=== PATIENT | male | born 1990 | race Caucasian/White ===

== ENCOUNTER 2018-09-04 12:14 | Emergency (ER) | payer OTHER ==
[2018-09-04 12:23] VITALS: BP 122/67; PULSE 79; TEMP 97.8; BMI 22.1
--- NOTE | 2018-09-04 12:52 | PDOC ---
History of Present Illness - General Chief Complaint: Wound Stated Complaint: INSECT BITE Time Seen by Provider: 09/04/18 12:33 History Source: Patient Exam Limitations: No Limitations Past History - Past Medical History Allergies/Adverse Reactions: Allergies Allergy/AdvReac Type Severity Reaction Status Date / Time No Known Allergies Allergy Verified 09/04/18 12:20 Home Medications: Ambulatory Orders Albuterol Sulfate Inhaler - [Ventolin Hfa Inhaler -] 1 - 2 inh PO Q4H PRN Asthma: Yes COPD: No - Surgical History Abdominal Surgery: Yes Appendectomy: Yes - Suicide/Smoking/Psychosocial Hx Smoking Status: No Smoking History: Unknown if ever smoked Have you smoked in the past 12 months: No Number of Cigarettes Smoked Daily: 0 Hx Alcohol Use: No Drug/Substance Use Hx: Yes ([facility]) Substance Use Type: Marijuana *Physical Exam - Vital Signs Last Vital Signs Temp Pulse Resp BP Pulse Ox 97.8 F 79 18 122/67 99 09/04/18 12:22 09/04/18 12:22 09/04/18 12:22 09/04/18 12:22 09/04/18 12:22 - Physical Exam General Appearance: No: Apparent Distress Integumentary: positive: Other (around 1 cm scab wound above R lateral malleolus , no induration or fluctuance, no drainage from site, no erythema, no warmth to extremity, no swelling). negative: Erythema, Jaundice, Mottled, Pale, Cold, Clammy, Hives, Petechiae, Rash, Swelling, Ecchymosis Moderate Sedation - Procedure Monitoring Vital Signs: Procedure Monitoring Vital Signs Temperature 97.8 F 09/04/18 12:22 Pulse Rate 79 09/04/18 12:22 Respiratory Rate 18 09/04/18 12:22 Blood Pressure 122/67 09/04/18 12:22 O2 Sat by Pulse Oximetry (%) 99 09/04/18 12:22 Medical Decision Making - Medical Decision Making 27 y/o M hx of asthma presents with insect bite to R[facility] from last year. Mentions was in the [place] and noted insect to his leg. Initially, he just threw the bug away, but sites the bite site never healed. Has not seen anyone regarding this. States site is itchy and he would scratch it, causing it to bleed and then it would scab over. Denies fever, sob, cp, abd pain, n/v/d, lethargy, weakness, redness, discharge from site. PE unremarkable; site does not appear infectious Advised to try topical hydrocortisone Return precautions discussed Stable for d/c 09/04/18 12:50 *DC/Admit/Observation/Transfer Diagnosis at time of Disposition: Insect bite Qualifiers: Encounter type: initial encounter Site of insect bite: lower leg Laterality: right Qualified Code(s): S80.861A - Insect bite (nonvenomous), right lower leg, initial encounter; W57.XXXA - Bitten or stung by nonvenomous insect and other nonvenomous arthropods, initial encounter - Discharge Dispostion Disposition: HOME Condition at time of disposition: Stable Decision to Admit order: No - Referrals Referrals: Sameer Fischer [Primary Care Provider] - 1 week - Patient Instructions Printed Discharge Instructions: DI for Insect Bites and Stings Additional Instructions: Thank you for choosing [facility]. It was a pleasure taking care of you. You may try applying 1% topical hydrocortisone twice a day to the site Apply picking on site Follow-up with your doctor in 1 week. Return to the Emergency Department if your symptoms worsen or persist, you have fever, redness/warmth, open wound, discharge from site, streaking or other concerning symptoms. - Post Discharge Activity
== END 2018-09-04 13:02 | disposition home or self-care (01) ==
LOC: JERFT 12:14
DX: S80.861A Insect bite (nonvenomous), right lower leg, initial encounter (principal); W57.XXXA Bitten or stung by nonvenomous insect and other nonvenomous arthropods, initial encounter; Y93.89 Activity, other specified; Y92.828 Other wilderness area as the place of occurrence of the external cause; Y99.8 Other external cause status
CPT/HCPCS: 99281-25